=== PATIENT | female | born 1955 | race Caucasian/White ===

== ENCOUNTER 2019-01-21 21:27 | Emergency (ER) | payer OTHER ==
[~2019-01-21] VITALS: Ht 165.1 cm; Wt 63.5 kg
[~2019-01-21 21:27] MED LIST: NOR10T; [UNRECOGNIZED DRUG - CODE]
[2019-01-21] MEDS ORDERED: PROPOFOL 100 ML IV SCH ×2 (21:28→21:35)
[2019-01-21] MEDS ORDERED: SUCCINYLCHOLINE CHLORIDE 20 MG/ML 10ML VIAL IV ONE ×2 (21:29→21:30)
[2019-01-21] MEDS ORDERED: ETOMIDATE (2MG/ML) 20ML VIAL IV ONE ×2 (21:29→21:30)
[2019-01-21] MEDS ORDERED: MIDAZOLAM DRIP 50 mg/50mL 50 ML IV ONE (21:30)
[2019-01-21 21:35] VITALS: BP 170/93
--- NOTE | 2019-01-21 21:35 | NUR ---
Respiratory note: PT INTUBATED BY DR. DE LA O FOR AIRWAY PROTECTION. PT INTUBATED WITH 7.5 ETT SECURED WITH TRIP AT 23 CM, CHEST XRAY PENDING TO VERIFY ETT TUBE PLACEMENT. BILATERAL BREATH SOUNDS HEARD THROUGHOUT LUNG FIELD, POSITIVE CAPNOGRAPHY COLOR CHANGE AND EQUAL CHEST RISE NOTED. SPUTUM SENT TO LAB, SMALL THIN BLOODY SECRETIONS SUCTIONED VIA ETT TUBE. PT PLACED ON VENT V 12 WITH SETTINGS MENTIONED ABOVE.VENT PLUGGED INTO RED OUTLET, ALARMS ON AND AUDIBLE, AMBU BAG AT BEDSIDE. RN AND PHYSICIAN AT BEDSIDE, PT ON CONT BEDSIDE MONITORING. WILL CONTINUE TO MONITOR ORDERED.
--- NOTE | 2019-01-21 21:40 | NUR ---
Respiratory note: ET TUBE RETRACTED TO 23CM POST CHEST XRAY, BILATERAL BS HEARD THROUGHOUT LUNG FIELD.
[2019-01-21] MEDS ORDERED: SODIUM CHLORIDE 0.9% 1,000 ML IV ONE (21:45)
[2019-01-21] MEDS: MIDAZOLAM DRIP 50 mg/50mL 50 ML IV SCH (22:13)
[2019-01-21 22:19] LABS: Basophils # (auto) 0.1 uL; Basophils % (auto) 1.1 % (0.0-2.0); Eosinophils # (auto) 0.1 uL; Eosinophils % (auto) 1.3 % (0.0-7.0); Hematocrit 33.7 % (36.0-46.0); Hemoglobin 10.7 g/dL (12.2-16.2); Lymphocytes # (auto) 0.8 uL; Lymphocytes % (auto) 10.9 % (10.0-50.0); Mean Corpuscular Hemoglobin 30.1 pg (28.0-32.0); Mean Corpuscular Hgb Conc. 31.8 g/dL (32.0-36.0); Mean Corpuscular Volume 94.7 fL (80.0-100.0); Monocytes # (auto) 0.3 uL; Monocytes % (auto) 4.1 % (0.0-12.0); Neutrophils # (auto) 6.3 uL; Neutrophils % (auto) 82.6 % (37.0-80.0); Platelet Count (auto) 192 10^3/uL (140-450); Red Blood Cells 3.56 10^6/uL (4.0-5.20); Red Cell Distribution Width 15.7 % (11.8-14.3); White Blood Cell 7.7 10^3/uL (4.4-10.8)
[2019-01-21 22:35] LABS: Amphetamine Screen, Urine NEGATIVE (NEGATIVE); Barbiturate Scree,Urine NEGATIVE (NEGATIVE); Benzodiazephine Screen, Urine NEGATIVE (NEGATIVE); Cannabinoid Screen, Urine NEGATIVE (NEGATIVE); Cocaine Screen, Urine NEGATIVE (NEGATIVE); Opiate Scree,Urine NEGATIVE (NEGATIVE); Phencyclidine Screen, Urine NEGATIVE (NEGATIVE); Urine Pregnacy Test Negative (Negative)
[2019-01-21 22:35] LABS: Albumin 3.1 g/dL (3.4-5.0); Anion Gap 10 (5-15); Blood Alcohol < 3.0 mg/dL (0-5); Blood Urea Nitrogen 24 mg/dL (7-18); Calcium 7.9 mg/dL (8.5-10.1); Carbon Dioxide 15 mmol/L (21-32); Chloride 111 mmol/L (98-107); Glucose 201 mg/dL (74-106); Magnesium 2.5 mg/dL (1.6-2.6); Potassium 3.2 mmol/L (3.5-5.1); Sodium 136 mmol/L (136-145)
[2019-01-21 22:36] LABS: Urine Bacteria FEW /hpf (None Seen); Urine Blood Negative /uL (Negative); Urine Specific Gravity 1.007 (1.001-1.035); Urine WBC 21 /hpf (0 - 5)
[2019-01-21 22:38] LABS: Acetaminophen < 2.0 ug/mL (10-30); Alanine Aminotransferase 19 U/L (13-56); Aspartate Aminotransferase 24 U/L (15-37); BUN/Creatinine Ratio 21.6; GFR African American 64 mL/min; GFR Non-African American 53 mL/min; Salicylate 3.1 mg/dL (2.8-20.0)
[2019-01-21 22:42] LABS: Alkaline Phosphatase 135 U/L (45-117); Bilirubin, Total 0.1 mg/dL (0.2-1.0); Total Protein 7.9 g/dL (6.4-8.2)
--- NOTE | 2019-01-21 23:10 | NUR ---
Respiratory note: ABG RESULTS REPORTED TO DR. DE LA O, FIO2 TITRATED TO 60%. REPEAT ABG IN 2 HOURS.
[2019-01-21 23:15] VITALS: BP 103/59
[2019-01-21 23:47] VITALS: BP 113/69
[2019-01-22] MEDS: MIDAZOLAM DRIP 50 mg/50mL 50 ML IV SCH (01:12)
[2019-01-22 02:02] VITALS: BP 157/103
[2019-01-22] MEDS ORDERED: CALC667C PO (02:20)
[2019-01-22] MEDS ORDERED: MYCO250C PO (02:20)
[2019-01-22] MEDS ORDERED: SODIGRA3 OR (02:20)
[2019-01-22] MEDS ORDERED: MULTTAB5 OR (02:20)
[2019-01-22 04:10] VITALS: BP 141/97
[2019-01-22 06:02] VITALS: BP 146/92
[2019-01-22] MEDS ORDERED: fentaNYL Drip 2500mCg/250mlNS 250 ML IV SCH (06:02)
[2019-01-22] MEDS ORDERED: fentaNYL Drip 2500mCg/250mlNS 250 ML IV ONE (06:12)
[2019-01-22 06:36] VITALS: BP 152/89
== END 2019-01-22 07:18 | disposition home or self-care (01) ==
LOC: EDBD 21:27 → ER 21:28
DX: I60.9 Nontraumatic subarachnoid hemorrhage, unspecified (principal); I61.5 Nontraumatic intracerebral hemorrhage, intraventricular; R41.82 Altered mental status, unspecified; F17.210 Nicotine dependence, cigarettes, uncomplicated; Z90.89 Acquired absence of other organs; Z79.899 Other long term (current) drug therapy; Z90.49 Acquired absence of other specified parts of digestive tract
CPT/HCPCS: 31500; 36415; 36600; 51702; 70450; 71045; 72125; 80053; 80307; 80320; 80329; 81001; 81025; 82805; 83605; 83735; 84484; 85025; 87040; 87070; 87077; 87186; 87205; 93005; 94002; 94761; 99285; J0330; J2250; J2704